=== PATIENT | male | born 1990 | race American Indian/Alaskan Native ===

== ENCOUNTER 2017-06-29 13:43 | Emergency (ER) | payer SELFPAY ==
[2017-06-29 14:26] VITALS: BP 97/60
[2017-06-29 14:39] LABS: Hematocrit 42.9 % (35.5-45.6); Hemoglobin 14.1 gm/dl (11.8-15.2); Mean Corpuscular HGB Conc 33 % (32-34); Mean Corpuscular Hemoglobin 27 pg (28-32); Mean Corpuscular Volume 81 fl (84-94); Platelet Count 224 K/mm3 (140-440); Red Blood Count 5.27 M/mm3 (3.65-5.03); Red Cell Distribution Width 14.6 % (13.2-15.2); White Blood Count 3.6 K/mm3 (4.5-11.0)
--- NOTE | 2017-06-29 14:49 | Cat Scan Report ---
CT OF THE ABDOMEN AND PELVIS WITHOUT CONTRAST HISTORY: Abdominal and pelvic pain. TECHNIQUE: Helical CT without contrast. Sagittal and coronal reformatted images. FINDINGS: Within the limits of a noncontrast exam, the abdominal and pelvic viscera are within normal limits. The liver, biliary system, pancreas, spleen, kidneys, adrenal glands and bladder are unremarkable. The bowel loops are normal caliber and wall thickness. There is moderate to large stool in the rectum. The appendix is not confidently identified. No inflammatory process in the right lower quadrant is appreciated. The aorta is normal caliber. No ascites, bulky adenopathy or inflammatory changes. There are 2 or 3 mildly enlarged and inflamed lymph nodes in the left groin measuring up to 2 cm. These may be reactive in nature. The lung bases are clear. Normal heart size. No suspicious bony lesion. IMPRESSION: No acute cardiopulmonary process is appreciated. Mild fecal retention in the rectum. Nonvisualization of the appendix but low suspicion for acute appendicitis. Left inguinal adenitis?
[2017-06-29 14:51] LABS: Anion Gap 17 mmol/L; Blood Urea Nitrogen 10 mg/dL (9-20); Calcium 9.2 mg/dL (8.4-10.2); Carbon Dioxide 27 mmol/L (22-30); Chloride 98.1 mmol/L (98-107); Glucose 83 mg/dL (75-100); Sodium 138 mmol/L (137-145)
[2017-06-29 15:48] LABS: Basophils % (Manual) 0 % (0.0-1.8); Blastocytes % (Manual) 0 %
[2017-06-29 15:49] LABS: Giant Platelets Rare; Microcytosis Few; Platelet Estimate Consistent w Auto
[2017-06-29 15:50] LABS: Anisocytosis 1+; Diff Status Complete
[2017-06-29 18:19] LABS: Bilirubin,Urine NEG (Negative); Blood,Urine NEG (Negative); Ketones,Urine NEG (Negative); Leukocyte Esterase,Urine TR (Negative); Mucus,Urine FEW /HPF; Nitrite,Urine NEG (Negative); Protein,Urine <15 mg/dL mg/dL (Negative)
== END 2017-06-29 23:30 | disposition left against medical advice (07) ==
LOC: ED 13:43
DX: R10.9 Unspecified abdominal pain (principal); Z53.21 Procedure and treatment not carried out due to patient leaving prior to being seen by health care provider
CPT/HCPCS: 36415; 74176; 80048; 81001; 85007; 85025